=== PATIENT | male | born 1995 | race Asian ===

== ENCOUNTER 2018-04-08 21:34 | Emergency (ER) | payer MEDICAID ==
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
[2018-04-08] MEDS ORDERED: ACETAMINOPHEN 500 MG TAB PO ONE (22:16)
[2018-04-08] MEDS ORDERED: IBUPROFEN 800 MG TAB PO ONE (22:16)
[2018-04-09 00:06] VITALS: BP 112/78
== END 2018-04-09 00:13 | disposition home or self-care (01) ==
DX: M25.551 Pain in right hip (principal); M54.2 Cervicalgia